=== PATIENT | male | born 1955 | race Caucasian/White ===

== ENCOUNTER → 2017-09-02 | Outpatient (REF) | payer BC ==
[~2017-09-02] MED LIST: ATOR1TAB21 PO; CHLO25TA PO; COQ1100C PO; KEFL500C17 PO; KRIL300C2 PO; MULTCAP PO; PANT40TA2 PO; POTACAP PO; motrin OR
== END ==
LOC: M LAB REF 14:01
PROVIDERS: ATTEND Nurse Practitioner Adult Health
DX: R20.8 Other disturbances of skin sensation (principal)

== ENCOUNTER → 2022-03-04 | Outpatient (CLI) | payer BC ==
[~2022-03-04] MED LIST changes: +AMLO25TA PO; +CENT1TAB12 PO; +CHLO125TA PO; -CHLO25TA PO; +COQ150CH PO; +FLOM0.4C39 PO; -PANT40TA2 PO; +PANT40TA29 PO; +ROSU5TAB5 PO
== END ==
LOC: M LABSMTC 09:20
PROVIDERS: ATTEND Anesthesiology
DX: Z01.818 Encounter for other preprocedural examination (principal); Z11.52 Encounter for screening for COVID-19

== ENCOUNTER 2022-03-09 08:41 | Day surgery (SDC) | payer BC, MEDICARE ==
[~2022-03-09] VITALS: Ht 175.3 cm; Wt 93.6 kg
[~2022-03-09 08:41] MED LIST changes: +NS 1,000 ML IV ONE
[2022-03-09] MEDS ORDERED: propofoL 200 MG/20 ML VIAL As Ordered ONE (09:53)
[2022-03-09] MEDS ORDERED: LIDOCAINE 2% 100MG/5ML SDV (FOR ANES.) As Ordered ONE (09:53)
[2022-03-09 10:19] VITALS: BP 118/76
== END 2022-03-09 10:41 | disposition home or self-care (01) ==
LOC: M OPP 08:41
PROVIDERS: ATTEND Internal Medicine Gastroenterology
DX: Z12.11 Encounter for screening for malignant neoplasm of colon (principal); Z83.71 Family history of colonic polyps; D12.3 Benign neoplasm of transverse colon; K64.0 First degree hemorrhoids; Z79.2 Long term (current) use of antibiotics; Z79.899 Other long term (current) drug therapy; Z88.0 Allergy status to penicillin; Z88.8 Allergy status to other drugs, medicaments and biological substances; Z95.0 Presence of cardiac pacemaker; Z87.891 Personal history of nicotine dependence

== ENCOUNTER → 2024-06-27 | Outpatient (CLI) | payer MEDICARE ==
[~2024-06-27] MED LIST changes: -NS 1,000 ML IV ONE; +ROSU5TAB40 PO; -ROSU5TAB5 PO
== END ==
LOC: M PLAIMG 08:33
PROVIDERS: ATTEND Physician Assistant
DX: I35.1 Nonrheumatic aortic (valve) insufficiency (principal)

== ENCOUNTER 2025-01-22 11:24 | Day surgery (SDC) | payer MEDICARE ==
[~2025-01-22] VITALS: Ht 175.3 cm; Wt 98.0 kg
[~2025-01-22 11:24] MED LIST changes: +AMLO1TAB24 PO; +CENTCHW3 PO; -FLOM0.4C39 PO; +OMEG12003 PO; +OMEP-173 PO; -ROSU5TAB40 PO; +ROSU5TAB49 PO; +TAMS-18 PO; +VITA500C24 PO
[2025-01-22 13:52] VITALS: TEMP 97.2
[2025-01-22 14:12] VITALS: BP 132/84; O2SAT 96
== END 2025-01-22 14:18 | disposition home or self-care (01) ==
LOC: M OPP 11:24
PROVIDERS: ATTEND Internal Medicine Gastroenterology
DX: K64.0 First degree hemorrhoids (principal); K57.30 Diverticulosis of large intestine without perforation or abscess without bleeding; Z86.0100 Personal history of colon polyps, unspecified; Z83.719 Family history of colon polyps, unspecified; G47.30 Sleep apnea, unspecified; Z95.0 Presence of cardiac pacemaker; Z88.0 Allergy status to penicillin; Z88.6 Allergy status to analgesic agent; Z88.8 Allergy status to other drugs, medicaments and biological substances; Z79.899 Other long term (current) drug therapy; J44.9 Chronic obstructive pulmonary disease, unspecified; Z87.891 Personal history of nicotine dependence